=== PATIENT | female | born 1975 | race African-American/Black ===

== ENCOUNTER 2017-12-28 16:40 | Emergency (ER) | payer OTHER ==
[2017-12-28 16:45] VITALS: BP 115/72; PULSE 80; TEMP 98.7; BMI 51.0
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
[2017-12-28] MEDS ORDERED: ACETAMINOPHEN 325 MG TABLET (FP) PO ONE (17:27)
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
[2017-12-28] MEDS ORDERED: ACETAMINOPHEN 325 MG TABLET (FP) ONE (19:03)
== END 2017-12-28 22:14 | disposition home or self-care (01) ==
LOC: JER 16:40
DX: R07.89 Other chest pain (principal); M54.2 Cervicalgia; M54.9 Dorsalgia, unspecified; M25.512 Pain in left shoulder; M25.531 Pain in right wrist; V43.52XA Car driver injured in collision with other type car in traffic accident, initial encounter; Y92.488 Other paved roadways as the place of occurrence of the external cause; Y93.89 Activity, other specified; Y99.8 Other external cause status; Z87.09 Personal history of other diseases of the respiratory system
CPT/HCPCS: 70450-TC; 71046-TC-FY; 72070-TC-FY; 72100-TC-FY; 72125-TC; 72170-TC-FY; 73030-TC-LT-FY; 73110-TC-RT-FY; 73130-TC-RT-FY; 99281-25